=== PATIENT | female | born 1965 | race Hispanic/Latino ===

== ENCOUNTER 2016-10-26 09:30 | Emergency (ER) | payer OTHER ==
[2016-10-26 09:37] VITALS: BMI 29.6
[2016-10-26 09:41] VITALS: TEMP 98.4
--- NOTE | 2016-10-26 10:19 | ED PDOC ---
Arrival/HPI - General Chief Complaint: Trauma Time Seen by Provider: 10/26/16 10:02 Historian: Patient - History of Present Illness Narrative History of Present Illness (Text): 10/26/16 10:16 50 year old female presents emergency department complaining of bilateral knee, right elbow, and neck pain after mechanical fall prior to arrival. Patient states she was getting out of a store when she tripped and fell. She states she fell onto her knees and hit her chin as she landed. Denies loss of consciousness. Patient reports last tetanus unknown. Time/Duration: Prior to Arrival Symptom Onset: Sudden Symptom Course: Unchanged Modifying Factors (Text): None Past Medical History - Provider Review Nursing Documentation Reviewed: Yes - Infectious Disease Hx of Infectious Diseases: None - Psychiatric Hx Substance Use: No - Surgical History Hx Tubal Ligation: Yes - Anesthesia Hx Anesthesia: Yes Family/Social History - Physician Review Nursing Documentation Reviewed: Yes Family/Social History: Unknown Family HX Smoking Status: Never Smoked Hx Alcohol Use: No Hx Substance Use: No Allergies/Home Meds Allergies/Adverse Reactions: Allergies No Known Allergies Allergy (Verified 03/11/15 09:51) Review of Systems - Physician Review All systems were reviewed & negative as marked: Yes - Review of Systems Eyes: absent: Vision Changes Respiratory: absent: SOB Cardiovascular: absent: Chest Pain Musculoskeletal: Neck Pain, Other (Bilateral knee pain, Right elbow pain) Physical Exam Vital Signs Reviewed: Yes Vital Signs Temp Pulse Resp BP Pulse Ox 10/26/16 11:33 79 16 128/80 97 10/26/16 09:41 98.4 F 85 18 127/83 95 Temperature: Afebrile Blood Pressure: Normal Pulse: Regular Respiratory Rate: Normal Appearance: Positive for: Well-Appearing, Non-Toxic, Comfortable Pain Distress: None Mental Status: Positive for: Alert and Oriented X 3 - Systems Exam Head: Present: Normocephalic, Abrasion (Small abrasion on chin) Pupils: Present: PERRL Extroacular Muscles: Present: EOMI Conjunctiva: Present: Normal Mouth: Present: Moist Mucous Membranes Neck: Present: Normal Range of Motion Respiratory/Chest: Present: Clear to Auscultation, Good Air Exchange. No: Respiratory Distress, Accessory Muscle Use Cardiovascular: Present: Regular Rate and Rhythm, Normal S1, S2. No: Murmurs Abdomen: Present: Normal Bowel Sounds. No: Tenderness, Distention, Peritoneal Signs Back: Present: Normal Inspection Upper Extremity: Present: Normal ROM, Tenderness (Mild tenderness to right elbow ). No: Cyanosis, Edema, Swelling Lower Extremity: Present: Normal ROM, Tenderness (Mild tenderness to bilateral knees). No: Edema, Swelling Neurological: Present: GCS=15, CN II-XII Intact, Speech Normal, Motor Func Grossly Intact, Normal Sensory Function Skin: Present: Warm, Dry, Normal Color. No: Rashes Psychiatric: Present: Alert, Oriented x 3, Normal Insight, Normal Concentration Medical Decision Making ED Course and Treatment: Impression: 50 year old female presents emergency department complaining of bilateral knee, right elbow, and neck pain after mechanical fall prior to arrival. Differential Diagnosis include but are not limited to: Fall r/o fracture Plan: -- CT Head, Neck -- XR right elbow, bilateral knees -- Tylenol -- Reassess and disposition Progress Notes: PROCEDURE: CT HEAD WITHOUT CONTRAST. Production Scheduler : Janie Bergman MD Report Date : 10/26/2016 10:56:38 IMPRESSION: 5 mm hypodense focus in the right cerebellum, possibly lacunar infarct. CT cervical spine without IV contrast Production Scheduler : Janie Bergman MD Report Date : 10/26/2016 11:07:00 Impression: Straightening of the normal cervical lordosis may be related to muscle spasm or positioning. No evidence of acute fracture or subluxation. Probable T6 vertebral body hemangioma. 10/26/16 10:24 Patient reports last tetanus unknown, however denies tetanus shot at this time. 10/26/16 11:21 Patient notified of incidental findings on Head CT. Neuro intact. 10/26/16 11:[address] alas bedside. recommends asa, and will follow pt outpt. - RAD Interpretation Radiology Orders: 10/26/16 10:13 CERVICAL SPINE W/O CONTRAST [CT] Stat HEAD W/O CONTRAST [CT] Stat ELBOW RIGHT 3 VIEWS ROUTINE [RAD] Stat KNEE W PATELLA BILAT 3 VIEW [RAD] Stat - Medication Orders Current Medication Orders: Discontinued Medications Acetaminophen (Tylenol 325mg Tab) 975 mg PO STAT STA Stop: 10/26/16 10:15 Last Admin: 10/26/16 10:23 Dose: 975 mg Aspirin (Aspirin) 325 mg PO STAT STA Stop: 10/26/16 11:53 Last Admin: 10/26/16 11:59 Dose: Aspirin (Aspirin Chewable) Confirm Administered Dose 324 mg .ROUTE .STK-MED ONE Stop: 10/26/16 11:58 Last Admin: 10/26/16 11:59 Dose: 324 mg - Scribe Statement The provider has reviewed the documentation as recorded by the Priti Jenkins Provider Scribe Attestation: All medical record entries made by the Shaunaibvaldez were at my direction and personally dictated by me. I have reviewed the chart and agree that the record accurately reflects my personal performance of the history, physical exam, medical decision making, and the department course for this patient. I have also personally directed, reviewed, and agree with the discharge instructions and disposition. Disposition/Present on Arrival - Present on Arrival Any Indicators Present on Arrival: No History of DVT/PE: No History of Uncontrolled Diabetes: No Urinary Catheter: No History of Decub. Ulcer: No History Surgical Site Infection Following: None - Disposition Have Diagnosis and Disposition been Completed?: Yes Diagnosis: Fall, Head injury, Knee pain Disposition: HOME/ ROUTINE Disposition Time: 12:00 Condition: STABLE Discharge Instructions (ExitCare): Knee Sprain (ED), Elbow Sprain (ED) Additional Instructions: please follow upw ith your doctor. return toer with worsening symptoms or concerns. please discuss the results of your ct with your doctor and specialist. Prescriptions: Naproxen 500 mg PO BID PRN #14 tab PRN Reason: Pain, Mild (1-3) Referrals: Srinivasan Tam III, MD [Medical Doctor] - Follow up with primary Simon Álvarez MD [Staff Provider] - Follow up with primary
--- NOTE | 2016-10-26 10:57 | CT ---
PROCEDURE: CT HEAD WITHOUT CONTRAST. HISTORY: fall COMPARISON: None available. TECHNIQUE: Axial computed tomography images were obtained through the head/brain without intravenous contrast. Radiation dose: Total exam DLP = 756.56 mGy-cm. This CT exam was performed using one or more of the following dose reduction techniques: Automated exposure control, adjustment of the mA and/or kV according to patient size, and/or use of iterative reconstruction technique. FINDINGS: HEMORRHAGE: No intracranial hemorrhage. BRAIN: No mass effect or edema. The bilateral basal ganglia calcifications. 5 mm right cerebellar hypodensity, possibly lacunar infarct. Mild scattered periventricular and subcortical white matter hypodensities, which are nonspecific, but often seen with chronic microvascular ischemic disease. Please note that MRI with diffusion imaging is more sensitive in the detection of acute ischemic event. VENTRICLES: No hydrocephalus. CALVARIUM: Unremarkable. PARANASAL SINUSES: Unremarkable as visualized. No significant inflammatory changes. MASTOID AIR CELLS: Unremarkable as visualized. No inflammatory changes. OTHER FINDINGS: None. IMPRESSION: 5 mm hypodense focus in the right cerebellum, possibly lacunar infarct.
--- NOTE | 2016-10-26 11:09 | CT ---
CT cervical spine without IV contrast Indication: Trauma Comparison: None available Technique: Axial computed tomography images were obtained of the cervical spine without the use of intravenous contrast. Coronal and sagittal reformatted images were created and reviewed. This CT exam was performed using 1 or more of the falling dose reduction techniques: Automated exposure control, adjustment of the MAA and/or kV according to patient size, and/or use of iterative reconstruction technique. Radiation dose: Total exam DLP = 452.26 mGy-cm. Findings: Straightening of the normal cervical lordosis may be related to muscle spasm or positioning. There is no evidence of acute fracture or subluxation. There is otherwise preserved alignment, vertebral body height, intervertebral disc spaces. Probable T6 vertebral body hemangioma. The prevertebral soft tissues and spinolaminar lines appear intact. The lateral masses are preserved. The dens tip is intact. There is proper alignment of the lateral masses of C1 with the C2 vertebral body. Included portions of the thyroid gland appear heterogeneous. Included portions of lung apices appear clear. Impression: Straightening of the normal cervical lordosis may be related to muscle spasm or positioning. No evidence of acute fracture or subluxation. Probable T6 vertebral body hemangioma.
--- NOTE | 2016-10-26 11:22 | RAD ---
PROCEDURE: Bilateral Knee Radiographs. HISTORY: fall COMPARISON: None. FINDINGS: BONES: Right Knee: Bone alignment and mineralization are normal. No acute fracture. Left Knee: Bone alignment and mineralization are normal. No acute fracture. JOINTS: Right Knee: Normal. No osteoarthritis. Left knee: Normal. No osteoarthritis. SOFT TISSUES: Right Knee: Normal. Left Knee: Normal. JOINT EFFUSION: Right Knee: None. Left Knee: None. OTHER FINDINGS: None. IMPRESSION: No acute fracture or dislocation.
--- NOTE | 2016-10-26 11:23 | RAD ---
PROCEDURE: Radiographs of the right elbow. HISTORY: Fall COMPARISON: No prior. FINDINGS: BONES: Normal. No acute displaced fracture. JOINTS: Normal. SOFT TISSUES: Normal. JOINT EFFUSION: None. OTHER FINDINGS: None. IMPRESSION: No acute displaced fracture or dislocation.
[2016-10-26 11:39] VITALS: BP 128/80; PULSE 79; RESP 16; O2SAT 97
--- NOTE | 2016-10-26 18:45 | CON ---
DATE: 10/26/2016 HISTORY OF PRESENT ILLNESS: This is a 50-year-old female with past medical history not significant, came here with the complaint of a fall and hit her chin and both hands, some bruises on the palm. The patient was getting out of the store and tripped and fell. No loss of consciousness and called to e valuate the patient. PAST MEDICAL HISTORY: Not significant. PHYSICAL EXAMINATION: VITAL SIGNS: Blood pressure 127/83. HEENT: Normocephalic, atraumatic. NECK: Supple. NEUROLOGIC: Alert, awake, oriented x 3. No aphasia. Cranial nerves II-XII were tested. Pupils tere ctive. EOM intact. Visual grvoes full. No facial asymmetry. Tongue midline. Motor examination: Moves all the extremities equally. Tone normal. Deep tendon reflexes 1+. Both plantars are downgoi ng. Sensory appears intact. Cerebellar gait deferred. IMPRESSION: Syncope, status post traumatic fall. CAT scan of the head showed 5 mm hypodense focus i n the right cerebellum, possibly lacunar infarct; and CT of the cervical spine with no evidence of ac [place] fracture or subluxation. PLAN: Continue present management. We will follow up. Simon Álvarez MD cc: [id number] TT: 10/26/2016 18:44:44 Confirmation # [id number] Dictation # [id number]
== END 2016-10-26 12:00 | disposition home or self-care (01) ==
LOC: ED 09:30
DX: S09.90XA Unspecified injury of head, initial encounter (principal); W01.0XXA Fall on same level from slipping, tripping and stumbling without subsequent striking against object, initial encounter; Y93.89 Activity, other specified; Y92.89 Other specified places as the place of occurrence of the external cause; M25.562 Pain in left knee; M25.561 Pain in right knee

== ENCOUNTER 2016-11-05 15:43 | Emergency (ER) | payer OTHER ==
[2016-11-05 15:55] VITALS: TEMP 98.3; BMI 29.8
--- NOTE | 2016-11-05 16:47 | ED PDOC ---
Arrival/HPI - General Chief Complaint: Dizziness/Lightheaded Time Seen by Provider: 11/05/16 15:46 Historian: Patient, Family - History of Present Illness Narrative History of Present Illness (Text): 11/05/16 16:44 50 year old female presents to the emergency department with intermittent lightheadedness/dizziness, posterior headache, and neck pain since fall 2 weeks ago. She also reports intermittent numbness and tingling to the bilateral arms and feet. She states she saw her neurologist and was told she needs an MRI, but has yet not been approved through her insurance to get one outpatient. PMD: Dr. Robins Time/Duration: > week Symptom Onset: Gradual Symptom Course: Intermittent Modifying Factors (Text): None Past Medical History - Provider Review Nursing Documentation Reviewed: Yes - Infectious Disease Hx of Infectious Diseases: None - Psychiatric Hx Substance Use: No - Surgical History Hx Tubal Ligation: Yes - Anesthesia Hx Anesthesia: Yes Family/Social History - Physician Review Nursing Documentation Reviewed: Yes Family/Social History: Unknown Family HX Smoking Status: Never Smoked Hx Alcohol Use: No Hx Substance Use: No Allergies/Home Meds Allergies/Adverse Reactions: Allergies No Known Allergies Allergy (Verified 03/11/15 09:51) Review of Systems - Physician Review All systems were reviewed & negative as marked: Yes - Review of Systems Respiratory: absent: SOB Cardiovascular: absent: Chest Pain Neurological: Headache, Dizziness, Other (Numbness and tingling to bilateral hands and feet) Physical Exam Vital Signs Reviewed: Yes Vital Signs Temp Pulse Resp BP Pulse Ox 11/05/16 18:52 60 20 142/92 H 97 11/05/16 17:03 75 18 127/75 98 11/05/16 15:53 98.3 F 78 16 129/80 98 Temperature: Afebrile Blood Pressure: Normal Pulse: Regular Respiratory Rate: Normal Appearance: Positive for: Well-Appearing, Non-Toxic, Uncomfortable Pain Distress: Mild Mental Status: Positive for: Alert and Oriented X 3 - Systems Exam Head: Present: Atraumatic, Normocephalic Pupils: Present: PERRL Extroacular Muscles: Present: EOMI Conjunctiva: Present: Normal Mouth: Present: Moist Mucous Membranes Neck: Present: Paraspinal Tenderness (Upper neck). No: Bruit Respiratory/Chest: Present: Clear to Auscultation, Good Air Exchange. No: Respiratory Distress, Accessory Muscle Use Cardiovascular: Present: Regular Rate and Rhythm, Normal S1, S2. No: Murmurs Abdomen: Present: Normal Bowel Sounds. No: Tenderness, Distention, Peritoneal Signs Back: Present: Paraspinal Tenderness (Lower lumbar), Pain with Leg Raise (Left) Upper Extremity: Present: Tenderness (Anterior shoulders bilaterally and over ulnar nerves R>L). No: Cyanosis, Edema Lower Extremity: Present: Normal Inspection. No: Edema Neurological: Present: GCS=15, CN II-XII Intact, Speech Normal Skin: Present: Warm, Dry, Normal Color. No: Rashes Psychiatric: Present: Alert, Oriented x 3, Normal Insight, Normal Concentration Medical Decision Making ED Course and Treatment: Impression: 50 year old female presents to the emergency department with intermittent lightheadedness/dizziness and posterior headache since fall 2 weeks ago. Differential Diagnosis included but are not limited to: Neuropathy, musculoskeletal pain Plan: -- Toradol -- Labs -- Reassess and disposition Prior Visits: Notes and results from previous visits were reviewed. Patient last seen in the ED on 10/26/16 for bilateral knee, right elbow, and neck pain after mechanical fall and discharged home. Progress Notes: Patients' blood work was normal. Orthostatics normal. EKG normal. She improved with toradol. She was explained her CT Head and Cervical Spine CT results from previous visits. She already followed up with a neurologist in [place] so she will f/u with them this week. I discussed case with Dr. Álvarez who agreed to outpatient follow up and offered to see her as an outpatient as well but patient says she already has a neurologist. - Lab Interpretations Lab Results: 11/05/16 17:03 11/05/16 17:03 Lab Results 11/05/16 17:03: Sodium 138, Potassium 4.2, Chloride 103, Carbon Dioxide 25, Anion Gap 14, BUN 23 H, Creatinine 0.9, Est GFR ( Amer) > 60, Est GFR ( Non-Af Amer) > 60, Random Glucose 87, Calcium 9.3, Magnesium 2.0 11/05/16 17:03: WBC 7.3 D, RBC 4.23, Hgb 13.2, Hct 38.5, MCV 91.0, MCH 31.2, MCHC 34.3, RDW 13.3, Plt Count 240, MPV 10.0, Gran % 53.6, Lymph % (Auto) 39.1 H , [place] % (Auto) 5.9, Eos % (Auto) 1.1 L, Baso % (Auto) 0.3, Gran # 3.92, Lymph # 2.9, [place] # 0.4, Eos # 0.1, Baso # 0.02 - EKG Interpretation Interpreted by ED Physician: Yes (EKG shows NSR at 74 BPM, otherwise normal) Type: 12 lead EKG - Medication Orders Current Medication Orders: Discontinued Medications Ketorolac Tromethamine (Toradol) 30 mg IVP STAT STA Stop: 11/05/16 16:44 Last Admin: 11/05/16 17:17 Dose: 30 mg - Scribe Statement The provider has reviewed the documentation as recorded by the Priti Jenkins Provider Scribe Attestation: All medical record entries made by the Shaunaibvaldez were at my direction and personally dictated by me. I have reviewed the chart and agree that the record accurately reflects my personal performance of the history, physical exam, medical decision making, and the department course for this patient. I have also personally directed, reviewed, and agree with the discharge instructions and disposition. Disposition/Present on Arrival - Present on Arrival Any Indicators Present on Arrival: No History of DVT/PE: No History of Uncontrolled Diabetes: No Urinary Catheter: No History of Decub. Ulcer: No History Surgical Site Infection Following: None - Disposition Have Diagnosis and Disposition been Completed?: Yes Diagnosis: Neuropathy Disposition: HOME/ ROUTINE Disposition Time: 18:52 Patient Plan: Discharge Condition: IMPROVED Discharge Instructions (ExitCare): Tension Headache (ED), Peripheral Neuropathy (ED) Additional Instructions: Ms Melchor, thank you for letting us take care of you today. Your provider was Dr. Vásquez. You were treated for Neuropathy, Headaches. The emergency medical care you received today was directed at your acute symptoms. If you were prescribed any medication, please fill it and take as directed. It may take several days for your symptoms to resolve. Return to the Emergency Department if your symptoms worsen, do not improve, or if you have any other problems. Please contact your doctor or call one of the physicians/clinics you have been referred to that are listed on the Patient Visit Information form that is included in your discharge packet. Bring any paperwork you were given at discharge with you along with any medications you are taking to your follow up visit. Our treatment cannot replace ongoing medical care by a primary care provider (PCP) outside of the emergency department. Thank you for allowing the [facility] team to be part of your care today. If you had an X-Ray or CT scan: A Radiologist will review the ED reading if any change in treatment is needed we will contact you. If you had a blood, urine, or wound culture: It will take several days for the results, if any change in treatment is needed we will contact you. If you had an STI test: It will take 48 hours for the results. Please call after 1 week if you have not heard back. Referrals: Yadira Robins MD [Primary Care Provider] - Follow up with primary Forms: [email or web address] (Spanish)
[2016-11-05 17:09] LABS: ADD MANUAL DIFF? NO
[2016-11-05 17:21] LABS: BASO # 0.02 K/mm3 (0.0-2.0); BASO % 0.3 % (0.0-3.0); EOS # 0.1 (0.0-0.7); EOS % 1.1 % (1.5-5.0); GRAN # 3.92 (1.4-6.5); GRAN % 53.6 % (50.0-68.0); HEMATOCRIT 38.5 % (36.0-48.0); LYMPH # 2.9 (1.2-3.4); LYMPH % 39.1 % (22.0-35.0); MEAN CORPUSCULAR HEMOGLOBIN 31.2 pg (25.0-35.0); MEAN CORPUSCULAR HGB CONC 34.3 g/dl (31.0-37.0); MONO # 0.4 (0.1-0.6); MONO % 5.9 % (1.0-6.0); PLATELET COUNT 240 10^3/uL (120.0-450.0); RED CELL DISTRIBUTION WIDTH 13.3 % (11.5-14.5); WHITE BLOOD COUNT 7.3 10^3/ul (4.5-11.0)
[2016-11-05 17:35] LABS: BLOOD UREA NITROGEN 23 mg/dL (7-21); CALCIUM 9.3 mg/dL (8.4-10.5); CARBON DIOXIDE 25 mmol/L (21-33); CHLORIDE 103 mmol/L (98-107); GFR AFRICAN-AMERICAN > 60; GLUCOSE,RANDOM 87 mg/dL (70-110); POTASSIUM 4.2 mmol/L (3.6-5.0); SODIUM 138 mmol/L (132-148)
[2016-11-05 18:54] VITALS: BP 142/92; PULSE 60; RESP 20; O2SAT 97
--- NOTE | 2016-11-06 11:29 | CARD ---
APPROVED REPORT EKG Measurement Heart [id number] <Conclusion> Normal sinus rhythm Possible Left atrial enlargement
== END 2016-11-05 18:52 | disposition home or self-care (01) ==
LOC: ED 15:43
DX: G62.9 Polyneuropathy, unspecified (principal)
CPT/HCPCS: 80048; 83735; 85025; 93005; 96374; 99285; J1885

== ENCOUNTER 2017-02-12 20:30 | Emergency (ER) | payer OTHER ==
[2017-02-12 20:31] VITALS: BMI 29.8
[2017-02-12 20:58] VITALS: BP 130/90; PULSE 85; RESP 16; TEMP 98.4; O2SAT 99
--- NOTE | 2017-02-12 21:17 | ED PDOC ---
Arrival/HPI - General Historian: Patient - History of Present Illness Time/Duration: Other (Few Days) Symptom Onset: Sudden Symptom Course: Unchanged Activities at Onset: Rest, Light Context: Home - General Chief Complaint: Lower Extremity Problem/Injury Time Seen by Provider: 02/12/17 21:06 - History of Present Illness Narrative History of Present Illness (Text): 02/12/17 21:14 A 51 year old female with no significant past medical history, presents to the emergency department with left leg pain for the past several days. The patient denies fevers, chills, headache, dizziness, chest pain, shortness of breath, dyspnea on exertion, cough, abdominal pain, nausea, vomiting, diarrhea, back pain, neck pain, urinary/bowel changes, or any other complaint. (Duane Black) Past Medical History - Provider Review Nursing Documentation Reviewed: Yes - Infectious Disease Hx of Infectious Diseases: None - Reproductive Menopause: Yes (2 years ago) - Neurological Hx Neurological Disorder: Yes HX Cerebrovascular Accident: Yes - Musculoskeletal/Rheumatological Hx Musculoskeletal Disorders: Yes Hx Back Pain: Yes - Psychiatric Hx Substance Use: No - Surgical History Hx Tubal Ligation: Yes - Anesthesia Hx Anesthesia: Yes Family/Social History - Physician Review Nursing Documentation Reviewed: Yes Family/Social History: No Known Family HX Smoking Status: Former Smoker Hx Alcohol Use: No Hx Substance Use: No Allergies/Home Meds Allergies/Adverse Reactions: Allergies No Known Allergies Allergy (Verified 03/11/15 09:51) Review of Systems - Physician Review All systems were reviewed & negative as marked: Yes - Review of Systems Constitutional: absent: Fevers, Night Sweats Respiratory: absent: SOB, Cough Cardiovascular: absent: Chest Pain, [place] Gastrointestinal: absent: Abdominal Pain, Stool Changes, Diarrhea, Nausea, Vomiting Genitourinary Female: absent: Urine Output Changes Musculoskeletal: Other (Lef Leg Pain). absent: Back Pain, Neck Pain Neurological: absent: Headache, Dizziness Physical Exam Vital Signs Reviewed: Yes Temperature: Afebrile Blood Pressure: Normal Pulse: Regular Respiratory Rate: Normal Appearance: Positive for: Well-Appearing, Non-Toxic, Comfortable Pain Distress: None Mental Status: Positive for: Alert and Oriented X 3 - Systems Exam Head: Present: Atraumatic, Normocephalic Pupils: Present: PERRL Extroacular Muscles: Present: EOMI Conjunctiva: Present: Normal Mouth: Present: Moist Mucous Membranes Neck: Present: Normal Range of Motion Respiratory/Chest: Present: Clear to Auscultation, Good Air Exchange. No: Respiratory Distress, Accessory Muscle Use Cardiovascular: Present: Regular Rate and Rhythm, Normal S1, S2. No: Murmurs Abdomen: Present: Normal Bowel Sounds. No: Tenderness, Distention, Peritoneal Signs Back: Present: Normal Inspection Upper Extremity: Present: Normal Inspection. No: Cyanosis, Edema Lower Extremity: Present: Normal Inspection. No: Edema Neurological: Present: GCS=15, CN II-XII Intact, Speech Normal Skin: Present: Warm, Dry, Normal Color. No: Rashes Psychiatric: Present: Alert, Oriented x 3, Normal Insight, Normal Concentration Vital Signs Temp Pulse Resp BP Pulse Ox 02/12/17 20:57 98.4 F 85 16 130/90 99 Medical Decision Making - Lab Interpretations I have reviewed the lab results: Yes ED Course and Treatment: 02/12/17 21:18 Impression: A 51 year old female presents to the emergency department with left leg pain for the past several days. Plan: -- Lower Extremity Vein Ultrasound -- Labs -- Reassess and disposition Prior Visits: Notes and results from previous visits were reviewed. Patient was last seen in the emergency department on 11/05/2016. The patient was seen for lightheadedness /dizziness, posterior headache, and neck pain since fall. She was discharged home. Progress Notes: 02/15/17 11:10 endorsed to overnight associate peniding us , reassessment and final dispo (Duane Black ) - Lab Interpretations Lab Results: 02/12/17 21:45 02/12/17 21:45 Lab Results 02/12/17 21:45: Sodium 139, Potassium 4.6, Chloride 103, Carbon Dioxide 26, Anion Gap 15, BUN 23 H, Creatinine 1.0, Est GFR ( Amer) > 60, Est GFR ( Non-Af Amer) 58, Random Glucose 90, Calcium 9.2, Total Bilirubin 0.5, AST 26, ALT 30, Alkaline Phosphatase 88, Total Protein 7.3, Albumin 4.2, Globulin 3.1, Albumin/Globulin Ratio 1.4 02/12/17 21:45: PT 10.4, INR 0.96, APTT 26.7 02/12/17 21:45: WBC 12.5 H D, RBC 4.13, Hgb 12.9, Hct 38.0, MCV 92.0, MCH 31.2, MCHC 33.9, RDW 12.7, Plt Count 210, MPV 9.9, Gran % 64.9, Lymph % (Auto) 28.1, [place] % (Auto) 5.9, Eos % (Auto) 0.8 L, Baso % (Auto) 0.3, Gran # 8.09 H, Lymph # 3.5 H, [place] # 0.7 H, Eos # 0.1, Baso # 0.04 - RAD Interpretation Radiology Orders: 02/12/17 21:11 DUPLEX LOWER EXTRM VEIN LEFT [US] Stat - Medication Orders Current Medication Orders: Discontinued Medications Ketorolac Tromethamine (Toradol) 30 mg IVP STAT STA Stop: 02/12/17 22:19 Last Admin: 02/12/17 23:36 Dose: 30 mg MAR Pain Assessment Document 02/12/17 23:36 MS (Rec: 02/12/17 23:36 MS [id number]) Pain Reassessment Is this a pain reassessment? No Sleep Is patient sleeping during reassessment? No Presence of Pain Presence of Pain Yes Pain Scale Used Pain Scale Used Numeric Description Intensity of Pain at present 7 IVP Administration Document 02/12/17 23:36 MS (Rec: 02/12/17 23:36 [id number]) Charges for Administration # of IVP Administrations 1 - Scribe Statement The provider has reviewed the documentation as recorded by the Scribe - Scribe Statement Erinn Alas Provider Scribe Attestation: All medical record entries made by the Scribe were at my direction and personally dictated by me. I have reviewed the chart and agree that the record accurately reflects my personal performance of the history, physical exam, medical decision making, and the department course for this patient. I have also personally directed, reviewed, and agree with the discharge instructions and disposition. (Duane Black) Disposition/Present on Arrival - Present on Arrival Any Indicators Present on Arrival: No History of DVT/PE: No History of Uncontrolled Diabetes: No Urinary Catheter: No History of Decub. Ulcer: No History Surgical Site Infection Following: None - Disposition Have Diagnosis and Disposition been Completed?: Yes Disposition Time: 11:00 - Disposition Diagnosis: Muscle strain Disposition: HOME/ ROUTINE Condition: GOOD Discharge Instructions (ExitCare): Muscle Strain (ED) Additional Instructions: Rest the affected area/medication as prescribed/follow up with your doctor this week Prescriptions: Naproxen [Naprosyn] 500 mg PO BID PRN #12 tab PRN Reason: Pain Forms: [facility] (Paraguayan), WORK NOTE
[2017-02-12 22:09] LABS: BASO # 0.04 K/mm3 (0.0-2.0); BASO % 0.3 % (0.0-3.0); EOS # 0.1 (0.0-0.7); EOS % 0.8 % (1.5-5.0); GRAN # 8.09 (1.4-6.5); GRAN % 64.9 % (50.0-68.0); LYMPH # 3.5 (1.2-3.4); LYMPH % 28.1 % (22.0-35.0); MEAN CORPUSCULAR HEMOGLOBIN 31.2 pg (25.0-35.0); MEAN CORPUSCULAR HGB CONC 33.9 g/dl (31.0-37.0); MEAN PLATELET VOLUME 9.9 fl (7.0-11.0); MONO # 0.7 (0.1-0.6); MONO % 5.9 % (1.0-6.0); RED CELL DISTRIBUTION WIDTH 12.7 % (11.5-14.5); WHITE BLOOD COUNT 12.5 10^3/ul (4.5-11.0)
[2017-02-12 22:11] LABS: ALB/GLOB RATIO 1.4 (1.1-1.8); ALKALINE PHOSPHATASE 88 U/L (38-126); ALT/SGPT 30 U/L (7-56); AST/SGOT 26 U/L (14-36); BILIRUBIN,TOTAL 0.5 mg/dL (0.2-1.3); BLOOD UREA NITROGEN 23 mg/dL (7-21); CALCIUM 9.2 mg/dL (8.4-10.5); CARBON DIOXIDE 26 mmol/L (21-33); CHLORIDE 103 mmol/L (98-107); GFR AFRICAN-AMERICAN > 60; GLUCOSE,RANDOM 90 mg/dL (70-110); POTASSIUM 4.6 mmol/L (3.6-5.0); SODIUM 139 mmol/L (132-148); TOTAL PROTEIN 7.3 g/dL (5.8-8.3)
[2017-02-12 22:16] LABS: INR 0.96 (0.93-1.08); PARTIAL THROMBOPLASTIN TIME 26.7 Seconds (23.7-30.8)
--- NOTE | 2017-02-12 23:20 | ED PDOC ---
Physical Exam Vital Signs Reviewed: Yes Vital Signs Temp Pulse Resp BP Pulse Ox 02/12/17 20:57 98.4 F 85 16 130/90 99 Temperature: Afebrile Blood Pressure: Normal Pulse: Regular Respiratory Rate: Normal Appearance: Positive for: Well-Appearing, Non-Toxic, Comfortable Pain Distress: None Mental Status: Positive for: Alert and Oriented X 3 - Systems Exam Back: Present: Normal Inspection Upper Extremity: Present: Normal Inspection. No: Cyanosis, Edema Lower Extremity: Present: Normal Inspection, NORMAL PULSES, Normal ROM, Neurovascularly Intact. No: Edema, CALF TENDERNESS, Lilli's Sign Neurological: Present: GCS=15, CN II-XII Intact, Speech Normal, Motor Func Grossly Intact, Normal Sensory Function Skin: Present: Warm, Dry, Normal Color. No: Rashes Psychiatric: Present: Alert, Oriented x 3, Normal Insight, Normal Concentration Medical Decision Making ED Course and Treatment: 02/12/17 23:19 Case endorsed to me by Dr. Black. Pending ultrasound prior to discharge. Plan: -- Ultrasound lower extremity -- Reassess and disposition 02/13/17 00:34 Ultrasound lower extremity Impression: Negative for venous Doppler. - Lab Interpretations Lab Results: 02/12/17 21:45 02/12/17 21:45 Lab Results 02/12/17 21:45: Sodium 139, Potassium 4.6, Chloride 103, Carbon Dioxide 26, Anion Gap 15, BUN 23 H, Creatinine 1.0, Est GFR ( Amer) > 60, Est GFR ( Non-Af Amer) 58, Random Glucose 90, Calcium 9.2, Total Bilirubin 0.5, AST 26, ALT 30, Alkaline Phosphatase 88, Total Protein 7.3, Albumin 4.2, Globulin 3.1, Albumin/Globulin Ratio 1.4 02/12/17 21:45: PT 10.4, INR 0.96, APTT 26.7 02/12/17 21:45: WBC 12.5 H D, RBC 4.13, Hgb 12.9, Hct 38.0, MCV 92.0, MCH 31.2, MCHC 33.9, RDW 12.7, Plt Count 210, MPV 9.9, Gran % 64.9, Lymph % (Auto) 28.1, [place] % (Auto) 5.9, Eos % (Auto) 0.8 L, Baso % (Auto) 0.3, Gran # 8.09 H, Lymph # 3.5 H, [place] # 0.7 H, Eos # 0.1, Baso # 0.04 - RAD Interpretation Radiology Orders: 02/12/17 21:11 DUPLEX LOWER EXTRM VEIN LEFT [US] Stat - Medication Orders Current Medication Orders: Discontinued Medications Ketorolac Tromethamine (Toradol) 30 mg IVP STAT STA Stop: 02/12/17 22:19 Last Admin: 02/12/17 23:36 Dose: 30 mg MAR Pain Assessment Document 02/12/17 23:36 DE (Rec: 02/12/17 23:36 DE [id number]) Pain Reassessment Is this a pain reassessment? No Sleep Is patient sleeping during reassessment? No Presence of Pain Presence of Pain Yes Pain Scale Used Pain Scale Used Numeric Description Intensity of Pain at present 7 IVP Administration Document 02/12/17 23:36 DE (Rec: 02/12/17 23:36 DE [id number]) Charges for Administration # of IVP Administrations 1 - Scribe Statement The provider has reviewed the documentation as recorded by the Scribe Kristi Hong All medical record entries made by the Scribe were at my direction and personally dictated by me. I have reviewed the chart and agree that the record accurately reflects my personal performance of the history, physical exam, medical decision making, and the department course for this patient. I have also personally directed, reviewed, and agree with the discharge instructions and disposition. Disposition/Present on Arrival - Present on Arrival Any Indicators Present on Arrival: No History of DVT/PE: No History of Uncontrolled Diabetes: No Urinary Catheter: No History of Decub. Ulcer: No History Surgical Site Infection Following: None - Disposition Have Diagnosis and Disposition been Completed?: Yes Diagnosis: Muscle strain Disposition: HOME/ ROUTINE Disposition Time: 00:41 Patient Plan: Discharge Condition: GOOD Discharge Instructions (ExitCare): Muscle Strain (ED) Additional Instructions: Rest the affected area/medication as prescribed/follow up with your doctor this week Prescriptions: Naproxen [Naprosyn] 500 mg PO BID PRN #12 tab PRN Reason: Pain Forms: [facility] (Polish), WORK NOTE
--- NOTE | 2017-02-13 15:23 | US ---
PROCEDURE: Left lower extremity venous US HISTORY: Leg pain and swelling. Evaluate for DVT. PHYSICIAN(S): Jose A Dias MD. TECHNIQUE: Duplex sonography and color-flow Doppler with graded compression were used to evaluate the deep venous system of the left lower extremity. FINDINGS: The visualized deep venous system of the left lower extremity is sonographically normal and compressible. Normal wave forms and augmentation are seen. There is no sonographic evidence for deep venous thrombosis in the visualized segments of the left lower extremity. IMPRESSION: 1. No sonographic evidence for deep venous thrombosis in the visualized segments of the left lower extremity.
== END 2017-02-13 00:50 | disposition home or self-care (01) ==
LOC: ED 20:30
DX: S86.912A Strain of unspecified muscle(s) and tendon(s) at lower leg level, left leg, initial encounter (principal); X58.XXXA Exposure to other specified factors, initial encounter; Y93.9 Activity, unspecified; Y92.9 Unspecified place or not applicable
CPT/HCPCS: 80053; 85025; 85610; 85730; 93971; 96374; 99285; J1885

== ENCOUNTER 2017-11-07 12:43 | Emergency (ER) | payer OTHER ==
[2017-11-07 12:44] VITALS: BMI 29.8
[2017-11-07 13:04] VITALS: RESP 16
[2017-11-07] MEDS ORDERED: Tmp-Smz 800 mg-160 mg DS Tab PO STA (13:24)
--- NOTE | 2017-11-07 13:31 | ED PDOC ---
Arrival/HPI - General Chief Complaint: Female Genitourinary Time Seen by Provider: 11/07/17 12:59 Historian: Patient - History of Present Illness Narrative History of Present Illness (Text): 11/07/17 13:28 pt p/w + 3days onset of vaginal itching/irritation, pt brought OTC cream ( Monistat and antibacterial cream) and used it on herself but the symptoms worsen over the last 2 days; pt now states intense itching/irritation/pain, + dysuria, + urinary frequency; pt denied fever/chills/sweats, no cp/sob/ palpitations, no abd pain, no n/v, no numbness/tingling, no bowel changes, no fall/trauma/sick contact, no travel; pt denied gross bleeding; pt denied vaginal discharge (no pus/bleeding); pt denied other complaints; pt is here for further evaluation pt denied Fall/trauma/sick contact/travel PCP: ? pt with prior hx of vaginitis - years ago pt states NO hx of STDs, pt receives annual [employer] exam Time/Duration: < week (2-3 days) Symptom Onset: Sudden Symptom Course: Worsening Quality: Aching, Stabbing, Cramping, Throbbing Severity Level: Severe Activities at Onset: Rest Context: Home Past Medical History - Provider Review Nursing Documentation Reviewed: Yes - Travel History Have you recently traveled outside [place] w/in the past 3 mons?: No - Past History Past History: Non-Contributing - Infectious Disease Hx of Infectious Diseases: None - Tetanus Immunization Tetanus Immunization: Unknown - Reproductive Menopause: Yes Currently : No - Neurological Hx Neurological Disorder: Yes HX Cerebrovascular Accident: Yes - Musculoskeletal/Rheumatological Hx Musculoskeletal Disorders: Yes Hx Back Pain: Yes - Psychiatric Hx Substance Use: No - Surgical History Hx Tubal Ligation: Yes - Anesthesia Hx Anesthesia: Yes Family/Social History - Physician Review Nursing Documentation Reviewed: Yes Family/Social History: No Known Family HX Smoking Status: Former Smoker Hx Alcohol Use: No Hx Substance Use: No Hx Substance Use Treatment: No Allergies/Home Meds Allergies/Adverse Reactions: Allergies No Known Allergies Allergy (Verified 03/11/15 09:51) Home Medications: Home Meds Medication Instructions Recorded Confirmed Levothyroxine [Synthroid] 0.1 mg PO DAILY 11/07/17 11/07/17 Review of Systems - Review of Systems Constitutional: Normal Eyes: Normal ENT: Normal Respiratory: Normal. absent: SOB Cardiovascular: Normal. absent: Chest Pain Gastrointestinal: Normal. absent: Abdominal Pain, Nausea, Vomiting Genitourinary Female: Dysuria, Frequency, Other (vaginal itching). absent: Hematuria, Urine Output Changes, Vaginal Bleeding Musculoskeletal: Normal Skin: Normal Neurological: Normal Endocrine: Normal Hemo/Lymphatic: Normal Psychiatric: Normal Physical Exam - Physical Exam Narrative Physical Exam (Text): 11/07/17 13:25 General: alert/awake, GCS = 15, oriented x 3, resting in bed, uncomfortable, cooperative, interactive; mild distress due to pain Head: NC/AT EYE: PERRLA, EOMI, sclera anicteric, no nystagmus, no photophobia; visual field intact b/l Facial: WNL Oral: uvula/tongue are midline, no exudate/lesions, no drooling/stridor, no dysphonia; intact dentitions; moist oral mucosa NECK: intact ROM, no midline tenderness, no nuchal rigidity, no meningeal signs ; no step off Chest: CTA b/l, no w/r/r; no tachypenia, no accessory muscle use noted Chest Wall: no crepitus, no lesions, no gross deformities, no focal tenderness Cardiac: +S1, +S2, no m/r/r, no tachycardia Abdominal: +BS, soft/nd/nt, well nourished/obese patient; no masses/rebound/ guarding/rigidity; no naik's sign, no mcburney's point tenderness : no vaginal lesions/ulcerations noted, + external/internal labia appears mildly erythematous, slightly swollen, clear, non-copious discharge noted, NO PUS/bleeding/gross discharge is noted; no FB/masses noted; no foul odor detected Extremities: intact ROM, strength 5/5 grossly intact in all limbs, neurovasc intact b/l; + ambulatory; reflex +2/2; no pitting edema/swelling noted b/l, no myles's sign b/l BACK: no step off, no midline tenderness, NO crepitus, no gross deformities noted; Intact ROM SKIN: cap refill < 1 sec, no ulcerations, no petechiae, no rashes; no gross pallor NEURO: CNII-XII WNL, no facial asymmetries, no slurr speech, oriented x 3 NIH stroke scale ~ 0 Psych: normal insight, normal affect; follows command with ease Vital Signs Reviewed: Yes Vital Signs Temp Pulse Resp BP Pulse Ox 11/07/17 12:58 99.5 F 92 H 16 127/83 98 Temperature: Afebrile Blood Pressure: Normal Pulse: Regular Respiratory Rate: Normal Appearance: Positive for: Well-Appearing, Non-Toxic, Uncomfortable. No: Comfortable, Ill-Appearing Pain Distress: Mild Mental Status: Positive for: Alert and Oriented X 3 - Systems Exam Head: Present: Atraumatic, Normocephalic Medical Decision Making ED Course and Treatment: 11/07/17 1310 Impression: vaginal irritation/itching, dysuria i have consider all the differential diagnosis regarding pt's chief medical complaints/clinical findings, including but are not limited to: likely vaginitis , r/o UTI A/P: vaginal irritation/itching, dysuria - ua - supportive care - observe/reevaluation 11/07/17 14:41 pt is doing well pt is not in any distress pt is made aware of her medical results pt is encouraged NO MORE OTC CREAMS placed into her vaginal; PT IS ENCOURAGED DRINKING FLUIDS PT IS ENCOURAGED NO DOUCHING PT IS ENCOURAGED NOT TO SWIM IN SWIMMING POOL for now until symptoms improve PT WILL F/U as directed pt will be discharged home Re-evaluation Time: 14:41 Reassessment Condition: Improving,but remains with symptoms - Lab Interpretations Lab Results: Lab Results 11/07/17 13:55: Urine Color Yellow, Urine Appearance Clear, Urine pH 6.0, Ur Specific [place] 1.025, Urine Protein Trace H, Urine Glucose (UA) Negative, Urine Ketones Negative, Urine Blood Moderate H, Urine Nitrate Positive H, Urine Bilirubin Negative, Urine Urobilinogen 1.0 H, Ur Leukocyte Esterase Large H, Urine RBC Pending, Urine WBC Pending I have reviewed the lab results: Yes Interpretation: Abnormal lab values (+ UTI) - Medication Orders Current Medication Orders: Discontinued Medications Fluconazole (Diflucan) 150 mg PO ONCE ONE PRN Reason: Protocol Stop: 11/07/17 13:28 Last Admin: 11/07/17 14:16 Dose: 150 mg Lidocaine HCl (Lidocaine 2% Viscous) 15 ml MM STAT STA Stop: 11/07/17 13:30 Last Admin: 11/07/17 14:08 Dose: 15 ml Trimethoprim/Sulfamethoxazole (Bactrim Ds Tab) 1 tab PO STAT STA PRN Reason: Protocol Stop: 11/07/17 13:25 Last Admin: 11/07/17 14:07 Dose: 1 tab Disposition/Present on Arrival - Present on Arrival Any Indicators Present on Arrival: No History of DVT/PE: No History of Uncontrolled Diabetes: No Urinary Catheter: No History of Decub. Ulcer: No History Surgical Site Infection Following: None - Disposition Have Diagnosis and Disposition been Completed?: Yes Diagnosis: Vaginitis, UTI (urinary tract infection) Disposition: HOME/ ROUTINE Disposition Time: 14:50 Patient Plan: Discharge Patient Problems: Current Active Problems Problem Status Onset UTI (urinary tract infection) Acute Vaginitis Acute Condition: STABLE Discharge Instructions (ExitCare): Urinary Tract Infections in Adults, Vaginitis Print Language: [place] Additional Instructions: Make sure to see your doctor in 1-2 days DRINK PLENTY OF FLUIDS take your medications as prescribed RETURN TO ED IF worse pain, cant breath, persistent vomiting, high fever >101- 102 for hours, altered behavior, slurr speech, facial changes, focal weakness ( arm/leg or both), unable to urinate, heavy/persistent bleeding, passing out, chest pain, or other medical emergencies Prescriptions: Ibuprofen [Motrin] 600 mg PO QID PRN #30 tab PRN Reason: Pain, Mild (1-3) Phenazopyridine HCl [Pyridium] 100 mg PO TID PRN #6 tablet PRN Reason: Urinary Discomt Sulfamethoxazole/Trimethoprim [Bactrim DS 800 mg-160 mg] 1 tab PO BID #13 tab Referrals: FAMILY PROVIDER,NO [Primary Care Provider] - Follow up with primary [facility] [Outside] - Follow up with primary [facility] [Outside] - Follow up with primary [facility] [Outside] - [facility] with [facility] [Outside] - Follow up with primary Forms: [facility] (Telugu)
[2017-11-07 14:14] LABS: URINE BILIRUBIN NEGATIVE (NEGATIVE); URINE BLOOD MODERATE (NEGATIVE); URINE GLUCOSE (UA) NEGATIVE (NEGATIVE); URINE LEUKOCYTE ESTERASE LARGE Leu/uL (NEGATIVE); URINE PROTEIN TRACE mg/dL (<30 mg/dL)
[2017-11-07 14:25] LABS: URINE APPEARANCE CLEAR (CLEAR); URINE COLOR YELLOW (YELLOW)
[2017-11-07 14:46] LABS: URINE RBC 20 - 25 /hpf (0-2); URINE WBC 25 - 30 /hpf (0-6)
[2017-11-07 14:47] LABS: URINE AMORPHOUS SEDIMENT FEW; URINE BACTERIA MANY (NEG)
[2017-11-07 14:54] VITALS: BP 118/74; PULSE 80; TEMP 98.6
[2017-11-07 14:56] VITALS: O2SAT 98
== END 2017-11-07 15:04 | disposition home or self-care (01) ==
LOC: ED 12:43
DX: N76.0 Acute vaginitis (principal); N39.0 Urinary tract infection, site not specified

== ENCOUNTER 2018-02-09 15:35 | Emergency (ER) | payer MEDICAID, OTHER ==
[2018-02-09 16:22] VITALS: BMI 30.5
[2018-02-09 16:33] VITALS: RESP 18; TEMP 98.3
--- NOTE | 2018-02-09 16:53 | ED PDOC ---
Arrival/HPI - General Chief Complaint: Dizziness/Lightheaded Time Seen by Provider: 02/09/18 16:35 Historian: Patient - History of Present Illness Narrative History of Present Illness (Text): 02/09/18 16:47 Patient is a 52 year old female whose past medical history includes hypothyroidism, who presents to the emergency department complaining of lightheadedness/dizziness. Patient reports that she has been experiencing lightheadedness/dizziness, headaches, fatigue, and is unable to focus for the past month. She is requesting hypothyroid medication, and admits to not taking her Synthroid for the past month. Patient mentions some lower abdominal pain. Patient denies fevers, chills, cough, shortness of breath, chest pain, dyspnea on exertion, nausea, vomiting, diarrhea, back pain, neck pain, or any other complaint. Time/Duration: Other (1 month) Symptom Onset: Gradual Symptom Course: Unchanged Context: Home Past Medical History - Provider Review Nursing Documentation Reviewed: Yes - Past History Past History: Non-Contributing - Infectious Disease Hx of Infectious Diseases: None - Tetanus Immunization Tetanus Immunization: Unknown - Neurological Hx Neurological Disorder: Yes HX Cerebrovascular Accident: Yes - Endocrine/Metabolic Hx Hypothyroidism: Yes - Musculoskeletal/Rheumatological Hx Musculoskeletal Disorders: Yes Hx Back Pain: Yes - Psychiatric Hx Substance Use: No - Surgical History Hx Tubal Ligation: Yes Other/Comment: 2 epidurals - Anesthesia Hx Anesthesia: Yes Family/Social History - Physician Review Nursing Documentation Reviewed: Yes Family/Social History: No Known Family HX Smoking Status: Former Smoker Hx Alcohol Use: No Hx Substance Use: No Hx Substance Use Treatment: No Allergies/Home Meds Allergies/Adverse Reactions: Allergies No Known Allergies Allergy (Verified 03/11/15 09:51) Home Medications: Home Meds Medication Instructions Recorded Confirmed Levothyroxine [Synthroid] 1 tab PO DAILY 11/07/17 02/09/18 Review of Systems - Physician Review All systems were reviewed & negative as marked: Yes - Review of Systems Constitutional: Fatigue. absent: Fevers, Night Sweats Respiratory: absent: SOB, Cough Cardiovascular: absent: Chest Pain, [place] Gastrointestinal: Abdominal Pain. absent: Diarrhea, Nausea, Vomiting Genitourinary Female: absent: Urine Output Changes Musculoskeletal: absent: Back Pain, Neck Pain Neurological: Headache, Dizziness (dizziness/lightheadedness) Physical Exam Vital Signs Reviewed: Yes Vital Signs Temp Pulse Resp BP Pulse Ox 02/09/18 16:25 98.3 F 79 18 117/89 98 Temperature: Afebrile Blood Pressure: Normal Pulse: Regular Respiratory Rate: Normal Appearance: Positive for: Well-Appearing Pain Distress: None Mental Status: Positive for: Alert and Oriented X 3 - Systems Exam Head: Present: Atraumatic, Normocephalic Pupils: Present: PERRL Extroacular Muscles: Present: EOMI Conjunctiva: Present: Normal Mouth: Present: Moist Mucous Membranes Neck: Present: Normal Range of Motion Respiratory/Chest: Present: Clear to Auscultation, Good Air Exchange. No: Respiratory Distress, Accessory Muscle Use Cardiovascular: Present: Regular Rate and Rhythm, Normal S1, S2. No: Murmurs Abdomen: No: Tenderness, Distention, Peritoneal Signs Back: Present: Normal Inspection Upper Extremity: Present: Normal Inspection. No: Cyanosis, Edema Lower Extremity: Present: Normal Inspection. No: Edema Neurological: Present: GCS=15, CN II-XII Intact, Speech Normal Skin: Present: Warm, Dry, Normal Color. No: Rashes Psychiatric: Present: Alert, Oriented x 3, Normal Insight, Normal Concentration Medical Decision Making ED Course and Treatment: 02/09/18 16:47 Impression: Patient is a 52 year old female complaining of lightheadedness and requesting thyroid medication. Differential Diagnosis included but are not limited to: hypothyrodi vs other metabolic etiloyg Plan: -- EKG -- Cardiac enzymes -- Blood work -- Urinalysis -- Reassess and disposition Prior Visits: Notes and results from previous visits were reviewed. Progress Notes: 02/09/18 17:28 EKG shows NSR at [address]/T wave changes. Interpreted by me. 02/09/18 19:52 labs show hypothryoid. will dc with home with rx x 1 week advise outpt fu. - Lab Interpretations I have reviewed the lab results: Yes - EKG Interpretation Interpreted by ED Physician: Yes Type: 12 lead EKG - Scribe Statement The provider has reviewed the documentation as recorded by the Scribe Ernesto Love Provider Scribe Attestation: All medical record entries made by the Scribe were at my direction and personally dictated by me. I have reviewed the chart and agree that the record accurately reflects my personal performance of the history, physical exam, medical decision making, and the department course for this patient. I have also personally directed, reviewed, and agree with the discharge instructions and disposition. Disposition/Present on Arrival - Present on Arrival Any Indicators Present on Arrival: No History of DVT/PE: No History of Uncontrolled Diabetes: No Urinary Catheter: No History of Decub. Ulcer: No History Surgical Site Infection Following: None - Disposition Have Diagnosis and Disposition been Completed?: Yes Diagnosis: Dizziness Disposition: HOME/ ROUTINE Disposition Time: 07:00 Condition: STABLE Discharge Instructions (ExitCare): Hypothyroidism (Underactive Thyroid) (DC), Dizziness, Nonvertigo, (DC) Additional Instructions: please follow up with your doctor/clinic. return to er with worsening symptoms or concerns. Prescriptions: Levothyroxine [Synthroid] 100 mcg PO DAILY #7 tab Referrals: [facility] [Outside] - [place] up with [place] [facility] [place] - Follow up with primary PCP,NO [Primary Care Provider] - Follow up with primary Forms: [facility] (Armenian)
[2018-02-09 17:28] LABS: BASO # 0.03 K/mm3 (0.0-2.0); BASO % 0.3 % (0.0-3.0); EOS # 0.1 (0.0-0.7); EOS % 0.7 % (1.5-5.0); GRAN # 4.62 (1.4-6.5); GRAN % 49.6 % (50.0-68.0); HEMOGLOBIN 14.1 g/dL (12.0-16.0); LYMPH # 4.2 (1.2-3.4); LYMPH % 44.4 % (22.0-35.0); MEAN CELL VOLUME 90.3 fl (80.0-105.0); MEAN CORPUSCULAR HEMOGLOBIN 30.5 pg (25.0-35.0); MEAN CORPUSCULAR HGB CONC 33.8 g/dl (31.0-37.0); MONO # 0.5 (0.1-0.6); RBC 4.62 10^6/uL (3.5-6.1); RED CELL DISTRIBUTION WIDTH 13.3 % (11.5-14.5); WHITE BLOOD COUNT 9.3 10^3/ul (4.5-11.0)
[2018-02-09 17:38] LABS: INR 0.96; PARTIAL THROMBOPLASTIN TIME 30.4 Seconds (25.1-36.5); PROTHROMBIN TIME 10.9 SECONDS (9.4-12.5)
[2018-02-09 17:41] LABS: ALB/GLOB RATIO 1.3 (1.1-1.8); ALBUMIN 4.7 g/dL (3.0-4.8); ALT/SGPT 18 U/L (7-56); AST/SGOT 27 U/L (14-36); BLOOD UREA NITROGEN 17 mg/dL (7-21); CALCIUM 9.8 mg/dL (8.4-10.5); GFR NON-AFRICAN AMERICAN 52
[2018-02-09 18:05] LABS: TROPONIN I < 0.01 ng/mL
[2018-02-09 18:15] LABS: FREE T4 0.29 ng/dL (0.78-2.19)
[2018-02-09 19:48] VITALS: BP 115/81; PULSE 69; O2SAT 99
--- NOTE | 2018-02-10 07:59 | CARD ---
APPROVED REPORT Date of service: 02/09/2018 EKG Measurement Heart [id number] MA [id number] [id number] <Conclusion> Normal sinus rhythm Normal ECG
== END 2018-02-09 19:50 | disposition home or self-care (01) ==
LOC: ED 15:35
DX: R42 Dizziness and giddiness (principal); Z86.73 Personal history of transient ischemic attack (TIA), and cerebral infarction without residual deficits; Z87.891 Personal history of nicotine dependence